=== PATIENT | female | born 1970 | race Caucasian/White ===

== ENCOUNTER 2016-09-14 03:36 | Emergency (ER) | payer SELFPAY ==
[2016-09-14] MEDS ORDERED: morphine CARPU-JECT 4 MG/1 ML DISP.SYRIN IVPUSH ONE (04:00)
[2016-09-14] MEDS ORDERED: ONDANSETRON 4 MG/2 ML VIAL IVPUSH ONE ×2 (04:00→09:53)
[2016-09-14] MEDS ORDERED: SODIUM CHLORIDE 1,000 ML IV STA (04:00)
[2016-09-14] MEDS ORDERED: HYDROmorphone HCL CARPU-JECT 1 MG/1 ML DISP.SYRIN IVPB ONE ×2 (04:01→06:46)
--- NOTE | 2016-09-14 04:02 | PDOC ---
History of Present Illness - General Chief Complaint: Pain, Acute Stated Complaint: ABD PAIN Time Seen by Provider: 09/14/16 03:59 History Source: Patient Exam Limitations: No Limitations - History of Present Illness Travel History: No Initial Comments: 09/14/16 05:53 46yo Female patient w/ PmHx of Ulcerative Colitis, Juvenile RA, Endometriosis s/ p hysterectomy presents to ED c/o possible C-Diff w/ complications. Patient states she completed her Remicade trial and she was told, she is now prone to C- Diff infections. Patient reports LLQ abdominal pain w/ small amount of blood. Associated n/v. Denies fever, poor appetite, change in appetite, or any other complaints at this time. Timing/Duration: reports: getting worse Quality: reports: moderate Abdominal Pain Onset Location: reports: LLQ Pain Radiation: reports: no radiation Activities at Onset: reports: none. denies: exertion, emotional upset, rest, sleep, no specific activity, eating, working, sexual intercourse, other Treatment Prior to Arrive: worse with: analgesics, antacids, cold pack, heat, laxative, enema, other Aggravating Factors: worse with: None, Defecation, Eating, Emotional upset, Exertion, [place], Movement, Voiding, Change in position Alleviating Factors: worse with: None, Belching, Shallow Breathing, Defecation, Eating, Holding Breath, Passing Gas, Change in Position, Rest, Voiding, Vomiting Past History - Travel Traveled outside of the country in the last 30 days: No Close contact w/someone who was outside of country & ill: No - Past Medical History Allergies/Adverse Reactions: Allergies Allergy/AdvReac Type Severity Reaction Status Date / Time codeine Allergy Intermediate Verified 09/14/16 05:08 morphine Allergy Unknown Verified 09/14/16 05:08 Sulfa (Sulfonamide Allergy Verified 09/14/16 05:08 Antibiotics) Home Medications: Ambulatory Orders Estrogens,Conjugated [Premarin -] 0.625 mg PO DAILY 04/23/16 Mesalamine [Asacol Hd -] 400 mg PO DAILY 09/14/16 GI Disorders: Yes (ULCERATIVE COLITIS) Psychiatric Problems: Yes (ANXIETY.) Suicide Attempt (Hx): No Other medical history: c-diff - Surgical History Abdominal Surgery: Yes Cholecystectomy: Yes - Immunization History Td Vaccination: Yes Immunization Up to Date: Yes - Psycho/Social/Smoking Cessation Hx Anxiety: Yes Suicidal Ideation: No Smoking Status: No Smoking History: Former smoker Years of Tobacco Use: 0 Have you smoked in the past 12 months: No Number of Cigarettes Smoked Daily: 1 If you are a former smoker, when did you quit?: 1 Cigars Per Day: 0 Information on smoking cessation initiated: No 'Breaking Loose' booklet given: 03/02/13 Hx Alcohol Use: No Drug/Substance Use Hx: No Substance Use Type: None Abd/GI Specific PMHX - Complaint Specific PMHX Colitis: Yes (ulcerative) Irritable Bowel Synd (IBS): Yes Review of Systems - Review of Systems Able to Perform ROS?: Yes Is the patient limited Pashto proficient: No Constitutional: No: Chills, Fever ABD/GI: Yes: Blood Streaked Bowels, Nausea, Vomiting, Abdominal cramping (LLQ). No: Diarrhea, Rectal Bleeding All Other Systems: Reviewed and Negative *Physical Exam - Vital Signs Last Vital Signs Temp Pulse Resp BP Pulse Ox 98.2 F 100 H 19 138/96 100 09/14/16 03:47 09/14/16 03:47 09/14/16 03:47 09/14/16 03:47 09/14/16 03:47 - Physical Exam General Appearance: Yes: Nourished, Appropriately Dressed. No: Apparent Distress, Mild Distress, Moderate Distress, Severe Distress Respiratory/Chest: positive: Lungs Clear, Normal Breath Sounds. negative: Chest Tender, Respiratory Distress, Accessory Muscle Use, Labored Respiration, Rapid RR, Stridor, Wheezing Cardiovascular: positive: Regular Rhythm, Regular Rate Gastrointestinal/Abdominal: positive: Normal Bowel Sounds, Tender, Soft, Tenderness (LLQ tenderness). negative: Rebound Musculoskeletal: positive: Normal Inspection. negative: CVA Tenderness Extremity: positive: Normal Capillary Refill, Normal Inspection, Normal Range of Motion Integumentary: positive: Normal Color, Dry, Warm Neurologic: positive: campus recruiting intern II-XII NML intact, Fully Oriented, Alert, Normal Mood/ Affect, Normal Response, Motor Strength /5 ED Treatment Course - LABORATORY CBC & Chemistry Diagram: 09/14/16 04:23 09/14/16 04:57 *DC/Admit/Observation/Transfer - Discharge Dispostion Condition at time of disposition: Good
[2016-09-14 04:03] VITALS: BMI 26.4
--- NOTE | 2016-09-14 04:03 | PDOC ---
*Physical Exam - Vital Signs Last Vital Signs Temp Pulse Resp BP Pulse Ox 98.2 F 100 H 19 138/96 100 09/14/16 03:47 09/14/16 03:47 09/14/16 03:47 09/14/16 03:47 09/14/16 03:47 ED Treatment Course - LABORATORY CBC & Chemistry Diagram: 09/14/16 04:23 09/14/16 04:57 Medical Decision Making - Medical Decision Making 09/14/16 04:03 agree with care from BETO Griffin *DC/Admit/Observation/Transfer Diagnosis at time of Disposition: Left lower quadrant abdominal tenderness - Discharge Dispostion Disposition: AGAINST MEDICAL ADVICE Condition at time of disposition: Good
[2016-09-14] MEDS ORDERED: ONDANSETRON 4 MG/2 ML VIAL ONE ×2 (04:32→10:02)
[2016-09-14] MEDS ORDERED: HYDROmorphone HCL CARPU-JECT 1 MG/1 ML DISP.SYRIN ONE ×3 (04:32→10:02)
[2016-09-14 05:00] LABS: BASOPHIL 0.8 % (0-2.0); EOSINOPHIL 2.3 % (0-4.5); MCH 26.6 pg (25.7-33.7); MCHC 32.2 g/dl (32.0-36.0); MEAN CELL VOLUME 82.6 fl (80-96); MEAN PLT VOLUME 8.6 fl (7.5-11.1); PLATELET COUNT 228 K/MM3 (134-434); RDW 16.4 % (11.6-15.6); WHITE BLOOD COUNT 8.1 K/mm3 (4.0-10.0)
[2016-09-14 05:30] LABS: ALBUMIN 3.5 g/dl (3.4-5.0); AMYLASE 22 U/L (25-115); ANION GAP 9 (8-16); BILIRUBIN,TOTAL 0.2 mg/dL (0.2-1.0); CALCIUM 8.4 mg/dL (8.5-10.1); CO2 24 mmol/L (21-32); COCKROFT - GAULT 120.4365; CREATININE 0.7 mg/dL (0.55-1.02); GLUCOSE,RANDOM 91 mg/dL (74-106); SGPT/ALT 26 U/L (12-78); TOT PROT 6.6 g/dl (6.4-8.2)
[2016-09-14 05:31] LABS: ALK PHOS 105 U/L (45-117)
[2016-09-14 05:35] LABS: SGOT/AST 23 U/L (15-37)
[2016-09-14 06:32] LABS: URINE APPEARANCE CLEAR; URINE BILIRUBIN NEGATIVE (NEGATIVE); URINE BLOOD NEGATIVE (NEGATIVE); URINE COLOR YELLOW; URINE GLUCOSE (UA) NEGATIVE (NEGATIVE); URINE KETONE NEGATIVE (NEGATIVE); URINE LEUK ESTERASE NEGATIVE (NEGATIVE); URINE NITRITE NEGATIVE (NEGATIVE); URINE PROTEIN NEGATIVE (NEGATIVE); URINE UROBILINOGEN NEGATIVE E.U./dl (0.2-1.0)
[2016-09-14] MEDS ORDERED: METOCLOPRAMIDE HCL INJECTION 10 MG/2 ML VIAL IVPB ONE (06:46)
[2016-09-14 06:54] VITALS: TEMP 98.4
[2016-09-14] MEDS ORDERED: METOCLOPRAMIDE HCL INJECTION 10 MG/2 ML VIAL ONE (07:03)
--- NOTE | 2016-09-14 07:44 | PDOC ---
*Physical Exam - Vital Signs Last Vital Signs Temp Pulse Resp BP Pulse Ox 98.4 F 81 17 121/72 97 09/14/16 06:53 09/14/16 06:53 09/14/16 06:53 09/14/16 06:53 09/14/16 06:53 - Physical Exam Comments: 09/14/16 07:46 Patient endorsed to me by Jeremy little patient is a 46-year-old female with a history of ulcerative colitis and juvenile R a, endometriosis with status post hysterectomy and anxiety patient reports to emergency room this a.m. with left lower quadrant tenderness that started yesterday with brown fowl smelling diarrhea small amount of blood in with stool 7 episodes, 3 since being here.Patient thinks that she might have possible C. difficile has had in the past 3 times since she had started on Remicade tria. Patient has been afebrile. Patient has been eating normally. Patient completed a trial of Remicade for 7 months. Pt. reports minimal LLQ tenderness when resting and increase in LLQ pain after having BM. Pt. currently is waiting to have CT of Abdomen with IV and po contrast 09/14/16 08:08 09/14/16 08:13 09/14/16 09:20 09/14/16 20:22 General Appearance: Yes: Appropriately Dressed Respiratory/Chest: positive: Lungs Clear, Normal Breath Sounds. negative: Chest Tender, Respiratory Distress Cardiovascular: positive: Regular Rhythm, Regular Rate, S1, S2 Gastrointestinal/Abdominal: positive: Normal Bowel Sounds, Tender (slight LLQ), Soft. negative: Distended, Guarding, Rebound, Tenderness, Hepatomegaly, Spleenomegaly Integumentary: positive: Normal Color Neurologic: positive: Alert, Normal Response, Responsive ED Treatment Course - LABORATORY CBC & Chemistry Diagram: 09/14/16 04:23 09/14/16 04:57 - ADDITIONAL ORDERS Additional order review: Laboratory Results 09/14/16 09/14/16 06:23 04:57 Sodium 143 Potassium 3.8 Chloride 110 H Carbon Dioxide 24 Anion Gap 9 BUN 10 Creatinine 0.7 Creat Clearance w eGFR > 60 Random Glucose 91 Calcium 8.4 L Total Bilirubin 0.2 AST 23 D ALT 26 Alkaline Phosphatase 105 Total Protein 6.6 Albumin 3.5 Total Amylase 22 L Lipase 65 L Urine Color Yellow Urine Appearance Clear Urine pH 5.0 Urine Protein Negative Urine Glucose (UA) Negative Urine Ketones Negative Urine Blood Negative Urine Nitrite Negative Urine Bilirubin Negative Urine Urobilinogen Negative Ur Leukocyte Esterase Negative 09/14/16 04:23 RBC 3.93 MCV 82.6 MCHC 32.2 RDW 16.4 H MPV 8.6 Neutrophils % 70.0 Lymphocytes % 16.6 D Monocytes % 10.3 H Eosinophils % 2.3 Basophils % 0.8 - Medications Given in the ED: ED Medications Discontinued Medications Generic Name Dose Route Start Last Admin Trade Name Amos PRN Reason Stop Dose Admin Hydromorphone HCl 1 mg 09/14/16 04:01 09/14/16 04:30 Dilaudid Injection - IVPB 09/14/16 04:02 1 mg ONCE ONE Administration Hydromorphone HCl 1 mg 09/14/16 06:46 09/14/16 07:01 Dilaudid Injection - IVPB 09/14/16 06:47 1 mg ONCE ONE Administration Sodium Chloride 1,000 mls @ 1,000 mls/hr 09/14/16 04:00 09/14/16 04:30 Normal Saline - IV 09/14/16 04:59 1,000 mls/hr ASDIR STA Administration Metoclopramide HCl 10 mg 09/14/16 06:46 09/14/16 07:01 Reglan Injection - IVPB 09/14/16 06:47 10 mg ONCE ONE Administration Morphine Sulfate 4 mg 09/14/16 04:00 09/14/16 04:27 Morphine Injection - IVPUSH 09/14/16 04:01 Not Given ONCE ONE Ondansetron HCl 4 mg 09/14/16 04:00 09/14/16 04:30 Zofran Injection IVPUSH 09/14/16 04:01 4 mg ONCE ONE Administration Medical Decision Making - Medical Decision Making 09/14/16 09:20 Patient endorsed to me by Jeremy Griffin pain patient is a 46-year-old female with a history of ulcerative colitis and juvenile R a, endometriosis with status post hysterectomy and anxiety patient reports to emergency room this a.m. with left lower quadrant tenderness that started yesterday with brown fowl smelling diarrhea small amount of blood in with stool 7 episodes, 3 since being here.Patient thinks that she might have possible C. difficile has had in the past 3 times since she had started on Remicade tria. Patient has been afebrile. Patient has been eating normally. Patient completed a trial of Remicade for 7 months. Pt. reports minimal LLQ tenderness when resting and increase in LLQ pain after having BM, Pt. currently is waiting to have CT of Abdomen with IV and po contrast PLAN: CT abdomen and pelvis with contrast impression no evidence of diverticulitis or acute pathology within the abdomen or pelvis. There is no evidence of intra- abdominal or retroperitoneal lymphadenopathy or fluid collections. There is a small fat-containing umbilical hernia present. There is no evidence of pneumoperitoneum bowel obstruction or intra-abdominal abscess. Per pt. is requesting pain medication and something for nausea at this time last received Dilaudid 1 mg IVPB and Zofran 4 mg IVPB Stool specimen for C. difficile obtained received result after pt. left AMA C difficle antigen toxin was not detected. 09/14/16 09:22 09/14/16 09:23 Laboratory Tests 09/14/16 09/14/16 09/14/16 04:23 04:57 06:23 WBC 8.1 RBC 3.93 Hgb 10.4 L D Hct 32.4 MCV 82.6 MCHC 32.2 RDW 16.4 H Plt Count 228 D MPV 8.6 Neutrophils % 70.0 Lymphocytes % 16.6 D Monocytes % 10.3 H Eosinophils % 2.3 Basophils % 0.8 Sodium 143 Potassium 3.8 Chloride 110 H Carbon Dioxide 24 Anion Gap 9 BUN 10 Creatinine 0.7 Creat Clearance w eGFR > 60 Random Glucose 91 Calcium 8.4 L Total Bilirubin 0.2 AST 23 D ALT 26 Alkaline Phosphatase 105 Total Protein 6.6 Albumin 3.5 Total Amylase 22 L Urine Color Yellow Urine Appearance Clear Urine pH 5.0 Ur Specific [place] Pending Urine Protein Negative Urine Glucose (UA) Negative Urine Ketones Negative Urine Blood Negative Urine Nitrite Negative Urine Bilirubin Negative Urine Urobilinogen Negative Ur Leukocyte Esterase Negative 09/14/16 09:54 09/14/16 11:01 Dr. Simpson called no response called Brett Stack to consult he recommended CRP, Sed rate, urine toxiology, stool for O & P, stool culture, vancomycin 250 mg q 6 h po IV fluids NS 0.9 100 ml q hr check stools specimen after each BM nurse informed Pt. c/o gastric reflux Maalox 30 ml now 09/14/16 11:16 09/14/16 11:24 Pt. has been updated on recommendation from Dr. Gracia however pt. requesting to leave against medical advice, pt. upset about noone getting stool specimen on her earlier, science writer did obtain earlier in this shift. She reports speaking to her sister and she will go to see a GI doctor in the community. Pt.was informed about risk of sepsis, worsening abdominal pain, including . Pt. signed out AMA. 09/14/16 11:30 09/14/16 20:22 09/17/16 13:22 09/17/16 13:23 Laboratory Tests 09/14/16 09/14/16 04:23 13:20 ESR 27 H C-Reactive Protein < 0.3 *DC/Admit/Observation/Transfer Diagnosis at time of Disposition: Left lower quadrant abdominal tenderness Qualifiers: Presence of rebound: not specified Qualified Code(s): R10.814 - Left lower quadrant abdominal tenderness - Discharge Dispostion Disposition: AGAINST MEDICAL ADVICE Condition at time of disposition: Good
[2016-09-14] MEDS ORDERED: HYDROmorphone HCL CARPU-JECT 1 MG/1 ML DISP.SYRIN IVPUSH ONE (09:50)
[2016-09-14] MEDS ORDERED: SODIUM CHLORIDE 1,000 ML IV SCH (11:00)
[2016-09-14] MEDS ORDERED: MAG HYDROX/AL HYDROX/SIMETH 30 ML UNIT-DOSE CUP ONE (11:15)
[2016-09-14] MEDS ORDERED: MAG HYDROX/AL HYDROX/SIMETH 355 ML ORAL.SUSP PO ONE (11:15)
[2016-09-14] MEDS ORDERED: VANCOMYCIN 250 MG/5 ML ORAL SOLUTION PO SCH (12:00)
[2016-09-14 12:41] VITALS: BP 116/79; PULSE 89
--- NOTE | 2016-09-14 14:42 | PDOC ---
Patient Follow-up (Call Back) - Post ED Follow - Up Chief Complaint: Pain Condition at time of discharge: Good Disposition at time of original discharge: AGAINST MEDICAL ADVICE Reason for Call Back: Abnwl. Microbiology (cdiff toxin positive (same as previous specimen) negative cdiff toxin (same as previous) pt left AMA I have left a message for pt to call back)
== END 2016-09-14 11:30 | disposition left against medical advice (07) ==
LOC: JER 03:36
PROC: 3E033GC Introduction of Other Therapeutic Substance into Peripheral Vein, Percutaneous Approach (ICD-10-PCS; principal; 2016-09-14)
PROC: 3E033NZ Introduction of Analgesics, Hypnotics, Sedatives into Peripheral Vein, Percutaneous Approach (ICD-10-PCS; 2016-09-14)
PROC: 3E0337Z Introduction of Electrolytic and Water Balance Substance into Peripheral Vein, Percutaneous Approach (ICD-10-PCS; 2016-09-14)
DX: R10.814 Left lower quadrant abdominal tenderness (principal); M08.00 Unspecified juvenile rheumatoid arthritis of unspecified site; Z90.710 Acquired absence of both cervix and uterus; Z87.19 Personal history of other diseases of the digestive system
CPT/HCPCS: 36415; 74177-TC; 80053; 81003; 82150; 83690; 85025; 85651; 86140; 87324; 87449; 99283-25

== ENCOUNTER 2017-11-25 16:24 | Emergency (ER) | payer SELFPAY ==
[2017-11-25 16:42] VITALS: BP 114/60; PULSE 93; TEMP 97.9; BMI 25.3
[2017-11-25] MEDS ORDERED: ACETAMINOPHEN 1000 MG/100 ML VIAL (NON FORMULARY) IVPB ONE (17:27)
[2017-11-25] MEDS ORDERED: ONDANSETRON 4 MG/2 ML VIAL IVPB ONE (17:27)
[2017-11-25] MEDS ORDERED: SODIUM CHLORIDE 1,000 ML IV STA (17:27)
[2017-11-25] MEDS ORDERED: ACETAMINOPHEN INJECTION 100 ML IVPB ONE (18:06)
[2017-11-25] MEDS ORDERED: ONDANSETRON 4 MG/2 ML VIAL ONE (18:06)
[2017-11-25 18:17] LABS: EOS % 3.8 % (0-4.5); HEMATOCRIT 33.9 % (32.4-45.2); HEMOGLOBIN 11.2 GM/dL (10.7-15.3); LYMPH % 28.4 % (8-40); MCHC 32.9 g/dl (32.0-36.0); MEAN CELL VOLUME 82.1 fl (80-96); MEAN PLT VOLUME 8.2 fl (7.5-11.1); MONO % 9.3 % (3.8-10.2); NEUT % 57.5 % (42.8-82.8); PLATELET COUNT 318 K/MM3 (134-434); RBC 4.13 M/mm3 (3.60-5.2); WHITE BLOOD COUNT 5.5 K/mm3 (4.0-10.0)
--- NOTE | 2017-11-25 18:24 | PDOC ---
Attending Attestation - Resident Resident Name: BelaCeline - ED Attending Attestation I have performed the following: The case was reviewed & discussed with the resident, I agree w/resident's findings & plan - Physicial Exam PE: 11/25/17 18:21 pt left prior to full examination. - Medical Decision Making 11/25/17 18:21 differential anemia, electrolyte abnormality dehydration . due to h/o c diff, concerns for recurrent c diff. pt ordered for labs ct a/p suddenly eloped prior to my full evaluation stating she has to go as her mother was just rushed to [place]. told to return as soon as she was able .left prior to labs results or any ct evaluation or iv hydration. <Jennifer Stanford - Last Filed: 11/25/17 18:21> - HPI HPI: 11/25/17 18:29 The patient is a 47 year old female with a past medical history of ulcerative colitis and C-dif who presents to the emergency department for evaluation of left lower quadrant abdominal pain w/ diarrhea since last night. Endorses nausea without vomiting. Denies chest pain, fevers, chills, headache, SOB, and dizziness. <Jayla Grady - Last Filed: 11/25/17 18:30> Attestations - Attestations Documentation prepared by Jayla Grady, acting as medical claims processor for Jennifer Stanford MD. <Jayla Grady - Last Filed: 11/25/17 18:30>
--- NOTE | 2017-11-25 18:35 | PDOC ---
History of Present Illness - General Chief Complaint: Pain Stated Complaint: STOMACH PAIN Time Seen by Provider: 11/25/17 17:12 History Source: Patient Exam Limitations: No Limitations - History of Present Illness Initial Comments: 11/25/17 18:30 Pt is a 47yo f with PMH of UC, RA presenting to ED with complaints of diarrhea, left sided abdominal pain that started last night and "is progressing". Associated with N and bilious vomiting, no blood. Pt said there are some blood clots in her stools which she states is typical when she has UC flares. She denies fever, chills, SOB, chest pain, cough, headache, lightheadedness. She denies urinary symptoms but states that she usually gets a uti with her flares. She was recently on a trial for UC medications. She does not have a GI doctor or a PCP due to insurance. Pt says she has a history of C. Diff PMH: see hpi PSH: hysterectomy, cholecystecomty, appendectomy Medss: asacol premarin allergies: sulfa drugs, morphine social: denies Past History - Past Medical History Allergies/Adverse Reactions: Allergies Allergy/AdvReac Type Severity Reaction Status Date / Time codeine Allergy Intermediate Verified 11/25/17 16:42 morphine Allergy Unknown Verified 11/25/17 16:42 Sulfa (Sulfonamide Allergy Verified 11/25/17 16:42 Antibiotics) Home Medications: Ambulatory Orders Mesalamine [Asacol Hd -] 400 mg PO ASDIR 09/14/16 Estrogens, Conjugated [Premarin] 0.625 mg PO DAILY 11/25/17 COPD: No GI Disorders: Yes (ULCERATIVE COLITIS) Psychiatric Problems: Yes (ANXIETY.) - Surgical History Abdominal Surgery: Yes Appendectomy: Yes Cholecystectomy: Yes - Immunization History Td Vaccination: Yes Immunization Up to Date: Yes - Suicide/Smoking/Psychosocial Hx Smoking Status: No Smoking History: Never smoked Years of Tobacco Use: 0 Have you smoked in the past 12 months: Yes Number of Cigarettes Smoked Daily: 1 If you are a former smoker, when did you quit?: 1 Cigars Per Day: 0 'Breaking Loose' booklet given: 03/02/13 Hx Alcohol Use: No Drug/Substance Use Hx: No Substance Use Type: None *Physical Exam - Vital Signs Last Vital Signs Temp Pulse Resp BP Pulse Ox 97.9 F 93 H 16 114/60 100 11/25/17 16:40 11/25/17 16:40 11/25/17 16:40 11/25/17 16:40 11/25/17 16:40 - Physical Exam General Appearance: Yes: Nourished, Appropriately Dressed. No: Apparent Distress HEENT: positive: EOMI, KILEY, Normal ENT Inspection Neck: positive: Trachea midline, Supple. negative: Lymphadenopathy (R), Lymphadenopathy (L) Respiratory/Chest: positive: Lungs Clear, Normal Breath Sounds. negative: Crackles, Rales, Stridor, Wheezing Cardiovascular: positive: Regular Rhythm, Regular Rate, S1, S2. negative: Edema , JVD Vascular Pulses: Dorsalis-Pedis (R): 2+, Doralis-Pedis (L): 2+ Gastrointestinal/Abdominal: positive: Normal Bowel Sounds, Tenderness (LLQ). negative: Guarding, Rebound Musculoskeletal: negative: CVA Tenderness Extremity: positive: Normal Capillary Refill Integumentary: positive: Normal Color, Dry, Warm Neurologic: positive: overcoil stepper II-XII NML intact, Fully Oriented, Alert, Normal Mood/ Affect, Normal Response, Motor Strength / ED Treatment Course - LABORATORY CBC & Chemistry Diagram: 11/25/17 17:55 11/25/17 17:55 - ADDITIONAL ORDERS Additional order review: 11/25/17 17:55 RBC 4.13 MCV 82.1 MCHC 32.9 RDW 18.0 H MPV 8.2 Neutrophils % 57.5 Lymphocytes % 28.4 D Monocytes % 9.3 Eosinophils % 3.8 Basophils % 1.0 - RADIOLOGY Radiology Studies Ordered: Category Date Time Status ABDOMEN & PELVIS CT WITH CONTR [CT] Stat CT Scan 11/25/17 17:27 Ordered - Medications Given in the ED: ED Medications Discontinued Medications Generic Name Dose Route Start Last Admin Trade Name Freq PRN Reason Stop Dose Admin Acetaminophen 1,000 mg 11/25/17 17:27 11/25/17 18:05 Ofirmev Injection - IVPB 11/25/17 17:28 1,000 mg ONCE ONE Administration Sodium Chloride 1,000 mls @ 1,000 mls/hr 11/25/17 17:27 11/25/17 18:05 Normal Saline - IV 11/25/17 18:26 1,000 mls/hr ASDIR STA Administration Ondansetron HCl 4 mg 11/25/17 17:27 11/25/17 18:05 Zofran Injection IVPB 11/25/17 17:28 4 mg ONCE ONE Administration Medical Decision Making - Medical Decision Making 11/25/17 18:35 47yo f with PMH of UC, RA presenting to ED with diarrhea and LLQ abdominal pain. DDx: UC flare, diverticultis, colitis Pt stated she got a call from her sister saying mother was in hospital. Wanted to sign out AMA. Asked pt to wait for a couple of minutes so Dr. Stanford could evaluate pt. Pt then proceeded to take out IV line and left ed. Patient eloped. 11/25/17 23:56 *DC/Admit/Observation/Transfer Diagnosis at time of Disposition: Left lower quadrant abdominal tenderness Qualifiers: Presence of rebound: absent Qualified Code(s): R10.814 - Left lower quadrant abdominal tenderness - Discharge Dispostion Disposition: ELOPED Condition at time of disposition: Unchanged/Unknown - Referrals - Patient Instructions - Post Discharge Activity
[2017-11-25 18:36] LABS: ALBUMIN 3.6 g/dl (3.4-5.0); ALK PHOS 114 U/L (45-117); ANION GAP 10 MMOL/L (8-16); BILIRUBIN,TOTAL 0.2 mg/dL (0.2-1.0); BLOOD UREA NITROGEN 13 mg/dL (7-18); CALCIUM 8.7 mg/dL (8.5-10.1); CHLORIDE 108 mmol/L (98-107); CO2 25 mmol/L (21-32); CREATININE 0.6 mg/dL (0.55-1.02); GLUCOSE,RANDOM 96 mg/dL (74-106); POTASSIUM 4.2 mmol/L (3.5-5.1); SGOT/AST 14 U/L (15-37); SGPT/ALT 28 U/L (12-78); SODIUM 143 mmol/L (136-145); TOT PROT 6.8 g/dl (6.4-8.2)
== END 2017-11-25 18:25 | disposition left against medical advice (07) ==
LOC: JER 16:24
PROC: 3E033GC Introduction of Other Therapeutic Substance into Peripheral Vein, Percutaneous Approach (ICD-10-PCS; principal; 2017-11-25)
PROC: 3E033NZ Introduction of Analgesics, Hypnotics, Sedatives into Peripheral Vein, Percutaneous Approach (ICD-10-PCS; 2017-11-25)
DX: R10.814 Left lower quadrant abdominal tenderness (principal); Z87.19 Personal history of other diseases of the digestive system
CPT/HCPCS: 36415; 80053; 83605; 83690; 85025; 99282-25; J0131; J7030